=== PATIENT | male | born 1980 | race Caucasian/White ===

== ENCOUNTER 2017-03-25 00:56 | Emergency (ER) | payer MEDICARE ==
[2017-03-25 01:40] LABS: BASO % 0.3 % (0.2-1.2); EOS % 0.2 % (0.8-7.0); GRAN # 8.5 10_X3_uL (1.8-5.4); GRAN % 83.7 % (34.0-67.9); HEMATOCRIT 43.2 % (40-51); HEMOGLOBIN 15.2 g/dL (13.7-17.5); LYMPH # 1.1 10_X3_uL (1.3-3.6); LYMPH % 10.6 % (21.8-53.1); MEAN CORPUSCULAR HGB CONC 35.2 g/dL (32.0-36.0); MEAN CORPUSCULAR VOLUME 88.2 fL (79-92); MEAN PLATELET VOLUME 10.3 fl (7.5-11.5); MONO # 0.5 10_X3_uL (0.3-0.8); MONO % 5.2 % (5.3-12.2); PLATELET COUNT 227 x10_3/uL (163-337); RED CELL DISTRIBUTION WIDTH 12.8 % (11.6-14.4); WHITE BLOOD COUNT 10.1 x10_3/uL (4.2-9.1)
[2017-03-25 02:12] LABS: BLOOD UREA NITROGEN 9 mg/dL (7-18); CARBON DIOXIDE 25 mmol/L (21-32); GLUCOSE,RANDOM 177 mg/dL (70-99); POTASSIUM 3.7 mmol/L (3.5-5.1); SODIUM 141 mmol/L (136-145)
[2017-03-25 15:12] LABS: AHDL CHOLESTEROL 38 mg/dL (>40); ALBUMIN 4.9 gm/dL (3.4-5.0); ALKALINE PHOSPHATASE 78 U/L (50-136); ALT/SGPT 18 U/L (7.53-40.17); AST/SGOT 28 U/L (6.66-35.34); BILIRUBIN,TOTAL 0.61 mg/dL (0.0-1.0); CHOLESTEROL 193 mg/dL (0-200); LDL CHOLESTEROL 143 mg/dL (0-99); MAGNESIUM 2.3 mg/dL (1.8-2.4); TOTAL PROTEIN 7.2 gm/dL (6.4-8.2); TRIGLYCERIDES 82 mg/dL (30-200)
[2017-03-25 15:24] LABS: BILIRUBIN,DIRECT < 0.20 mg/dL (0.0-0.30)
== END 2017-03-25 03:30 ==
LOC: ER 00:56 → EDSTATUS 14:17 → LAB-SFHC 1 14:17 → ER 03-27 00:56 → EDSTATUS 03-27 12:56
PROVIDERS: Family Medicine; General Practice
DX: G40.909 Epilepsy, unspecified, not intractable, without status epilepticus (principal); D64.9 Anemia, unspecified; F32.9 Major depressive disorder, single episode, unspecified; R53.83 Other fatigue; E83.42 Hypomagnesemia; Z79.899 Other long term (current) drug therapy; G43.909 Migraine, unspecified, not intractable, without status migrainosus; E55.9 Vitamin D deficiency, unspecified; M54.9 Dorsalgia, unspecified; R10.84 Generalized abdominal pain; F17.210 Nicotine dependence, cigarettes, uncomplicated
CPT/HCPCS: 36415; 70450; 80048; 80061; 80076; 80307; 82306; 83036; 83735; 84443; 85025; 93005; 99284-25; J8597